=== PATIENT | male | born 1990 | race Caucasian/White ===

== ENCOUNTER 2018-03-12 15:31 | Emergency (ER) | payer MEDICAID ==
[2018-03-12] MEDS: KETOROLAC 30 MG INJ IM (18:36)
== END 2018-03-12 19:57 | disposition home or self-care (01) ==
LOC: FTE 15:31
DX: S89.91XA Unspecified injury of right lower leg, initial encounter (principal); V28.9XXA Unspecified motorcycle rider injured in noncollision transport accident in traffic accident, initial encounter; Z87.891 Personal history of nicotine dependence
CPT/HCPCS: 29505; 73562; 96372; 99284-25

== ENCOUNTER 2018-03-23 15:55 | Emergency (ER) | payer MEDICAID | END 2018-03-23 17:15 | disposition home or self-care (01) | LOC: FTE 15:55 | DX: H57.11 Ocular pain, right eye (principal) | CPT/HCPCS: 99282; Z7502 ==